=== PATIENT | female | born 1995 | race Caucasian/White ===

== ENCOUNTER 2021-01-01 14:19 | Emergency (ER) | payer OTHER, SELFPAY ==
[2021-01-01 14:36] VITALS: BP 120/67; PULSE 55; RESP 16; TEMP 36.3; O2SAT 98
--- NOTE | 2021-01-01 15:02 | ED.URI ---
HPI - URI/Sore Throat General Chief Complaint: Upper Respiratory Infection Stated Complaint: Allergies Time Seen by Provider: 01/01/21 14:42 Source: patient and RN notes reviewed Mode of arrival: ambulatory Limitations: no limitations History of Present Illness HPI Narrative: Patient presents today with a 2-day history of rhinorrhea, sore throat, postnasal drip, right eye drainage and redness, cough due to postnasal drip. Denies shortness of breath, difficulty swallowing, fever. No history of asthma. She has been taking Mucinex severe with mild relief. She had a negative rapid Covid test 2 days ago at [facility]. She had her first Covid 19 vaccination today. Reports that she needs to be seen by medical provider before she can return to work because she is still experiencing sick symptoms. MD elicited complaint: cough, sore throat and rhinorrhea Related Data Home Medications Medication Instructions Recorded Confirmed No Home Medications 01/01/21 01/01/21 Allergies Allergy/AdvReac Type Severity Reaction Status Date / Time No Known Allergies Allergy Unverified 01/01/21 14:39 Review of Systems Review of Systems: Narrative: CONSTITUTIONAL: Denies body aches, fever, chills, or sweats. EYES: Denies visual changes. + Eye redness and drainage ENT: Denies otalgia. + Rhinorrhea, postnasal drip, sore throat CARDIOVASCULAR: Denies chest pain, palpitations, or edema. RESPIRATORY: Denies dyspnea. + Cough GASTROINTESTINAL: Denies abdominal pain, nausea, vomiting, or diarrhea. GENITOURINARY: Denies dysuria or hematuria. SKIN: Denies rash, itching, or wounds. MUSCULOSKELETAL: Denies back pain, joint pain, or myalgia. NEUROLOGIC: Denies headache, numbness, tingling, or weakness. PSYCH: Denies depression or anxiety. [facility] Past Medical History Medical History (Updated 01/01/21 @ 15:07 by Nena Adames, [facility], ) Fracture, ilium closed Comments At time of signature, I have reviewed and agree with nursing past medical, surgical, social and family history unless otherwise noted. Please see nursing chart for further information. There is no relevant family history pertinent to the presenting complaint Exam Narrative: Exam Narrative: GENERAL: Well-appearing, well-nourished, and in no acute distress. HEAD: Normocephalic, atraumatic. EYES: EOMI. PERRL. Right eye with mildly injected conjunctiva and chemosis. Lids and lashes normal bilaterally. ENT: Mucous membranes pink and moist. Nares congested with rhinorrhea. Bilateral nasal turbinates are erythematous and edematous. TMs normal bilaterally. Throat normal. Uvula midline. NECK: Normal AROM. Supple. No lymphadenopathy. CHEST: No respiratory distress. Clear to auscultation. HEART: Regular rate and rhythm. No murmur appreciated. Normal peripheral pulses. EXTREMITIES: Normal range of motion. No edema. SKIN: Warm, dry, no rash. Capillary refill normal. Normal skin turgor. NEURO: No focal deficits. Alert and oriented x3. Gait steady. PSYCH: Normal affect. No signs of depression or anxiety. Course Vital Signs Vital signs: Vital Signs Temperature 97.4 F L 01/01/21 14:36 Pulse Rate 55 L 01/01/21 14:36 Respiratory Rate 16 01/01/21 14:36 Blood Pressure 120/67 01/01/21 14:36 Pulse Oximetry 98 01/01/21 14:36 Temperature 97.4 F L 01/01/21 14:36 Pulse Rate 55 L 01/01/21 14:36 Respiratory Rate 16 01/01/21 14:36 Blood Pressure 120/67 01/01/21 14:36 Pulse Oximetry 98 01/01/21 14:36 Reviewed MDM - URI/Sore Throat Differential Diagnosis Differential diagnosis: Likely upper respiratory infection, sinusitis, viral infection, bronchitis, pharyngitis and other (Rhinitis, seasonal allergies) Critical Care Time Critical Care Time Critical Care Time: No Discharge Plan Discharge Clinical Impression: Allergy to environmental factors Patient Disposition: Home, Self-Care Condition: Stable Instructions: Allergies (ED) Additional I
== END 2021-01-01 15:04 | disposition home or self-care (01) ==
PROVIDERS: Emergency Provider Nurse Practitioner
DX: J30.2 Other seasonal allergic rhinitis (principal)
CPT/HCPCS: 99202; G0463

== ENCOUNTER 2025-03-11 15:33 | Emergency (ER) | payer BC, SELFPAY ==
--- NOTE | ~2025-03-11 | US_ITS ---
EXAMINATION: US abdomen limited DATE: 03/11/2025 16:49 INDICATION: Right upper quadrant abdominal pain TECHNIQUE: Multiple grayscale and Doppler ultrasound images of the abdomen were obtained. COMPARISON: None FINDINGS: The visualized proximal to mid abdominal aorta and inferior vena cava are normal. The visualized body of the pancreas is normal. Portions of the head and tail are obscured by shadowing bowel gas.. Liver has normal echogenicity and contour, with a smooth surface. No liver lesion identified. No intrahepa tic biliary duct dilation suspected. Portal venous flow was seen in the hepatopetal, normal direction and has normal Doppler waveform. The gallbladder is normal in appearance. There is no cholelithiasi s. The common bile duct measures 3-4 mm, which is normal. Sonographic Poe sign was reported as pos itive by the shop steward. IMPRESSION: 1. Positive sonographic Poe's sign but otherwise normal right upper quadrant ultrasound with alessandra l appearing gallbladder and no cholelithiasis. Reviewed, dictated and finalized at location A. IMPRESSION: 1. Positive sonographic Poe's sign but otherwise normal right upper quadrant ultrasound with normal appearing gallbladder and no cholelithiasis.
--- OUTSIDE RECORDS SUMMARY | 2025-03-11 15:35 | XMS_ITS | Clinical Summary ---
Author Organization [facility] Address [address] [place] [address] Care Team Providers Care Logistics Planning Manager Name Role Phone Bela Vázquez MD Primary Care Provider [phone] Source Comments [facility],non-owned Affiliates and Associated Physician Practices is amultiple site organization consisting of ambulatory clinics and hospital sitesin [place], [place], [place] and [place]. This disclosure is being madepursuant to the Care Everywhere program and may not contain all information available regarding this patient. Last updated 18.Sumpto Allergies No known active allergies Medications * Be aware that medications may not be up to date on this document. Alwaysverify current medications with the patient. 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; describes vesicular and pustular rash, now resolved with exception of 2 excoriated papules in webspace of 1st and 2nd right finger; consider folliculitis vs scabies vs tendency toward psoriasis; h/o significant cradle cap and current mild dandruff Skin Cx: neg Family History Medical History Relation Name Comments Hay Fever Father Sinusitis Father Cancer Maternal Aunt Cancer Cervical Maternal Aunt Skin problem Maternal Aunt nodular acne Cancer Maternal Grandmother Cancer Cervical Maternal Grandmother Clotting Disorder Maternal Grandmother Diabetes Maternal Grandmother Stroke Maternal Grandmother Cold Sores Mother Relation Name Status Comments Father Maternal Aunt Maternal Grandmother Mother Social History Tobacco Use Types Packs/Day Years Used Date Smoking Tobacco: Never Alcohol Use Standard Drinks/Week Comments Yes 0 (1 standard drink = 0.6 oz pure alcohol) drinks beer on weekends at parties Comments Unknown Sex and Gender Information Value Date Recorded Sex Assigned at Not on file 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 Gender Identity Not on file Sexual Orientation Not on file Last Filed Vital Signs Vital Sign Reading Time Taken Comments Blood Pressure 115/66 07/22/2012 3:42 PM CDT Pulse 80 07/22/2012 3:42 PM CDT Temperature 36.7 C (98 F) 07/22/2012 3:42 PM CDT Respiratory Rate 19 07/22/2012 3:42 PM CDT Oxygen Saturation 99% 05/28/2012 8:50 AM CDT Inhaled Oxygen Concentration - - Weight 69.9 kg (154 lb 1.6 oz) 07/22/2012 3:42 P M CDT Height 162.6 cm (5' 4) 06/11/2012 3:34 PM CDT Body Mass Index - - Plan of Treatment Health Maintenance Due Date Last Done Comments HIV SCREENING 2010 HEPATITIS C SCREENING 10/29/2013 DTAP/TDAP/TD VACCINES (1 - Tdap) 2014 HEPATITIS B VACCINE (1 of 3 - 19+ 3-dose series) 2014 COVID-19 VACCINE (1 - 2023-2 5 season) 2024 DEPRESSION SCREENING 09/29/2024 INFLUENZA VACCINE (Season Ended) 2025 ZOSTER VACCINE (1 of 2) 2045 HIB VACCINE Aged Out No longer eligi ble based on patient's age to complete this topic HPV VACCINE Aged Out No longer eligi ble based on patient's age to complete this topic MENINGOCOCCAL (Group B) VACC INE SHARED DECISION-MAKING Aged Out No longer eligibl e based on patient's age to complete this topic MENINGOCOCCAL GROUPS A/C/Y/W VACCINE Aged Out No longer eligible b ased on patient's age to complete this topic PNEUMOCOCCAL VACCINE Aged Out No long er eligible based on patient's age to complete this topic Additional Health Concerns Infection Onset Date Last 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 07/27/2012 Insurance [place]ID [place] Member Subscriber Plan / Payer (Ef fective for All Dates) Name:Mey Steiner Relation to Subscriber:Self Name:Susan Steinerdiana Mancia Payer ID:Not on file Group ID:Not on file Type:Medicaid [place] Address: [place] [id number] [place] Member Subscriber Plan / Payer (Ef fective for All Dates) Name:Mey Steiner Relation to Subscriber:Self Name:Mey Steiner Payer ID:Not on file Group ID:Not on file Type:Medicaid [place] Address: [place] [id number] [place] Member Subscriber Plan / Payer (Ef fective for All Dates) Name:Mey Steiner Relation to Subscriber:Self Name:Mey Steiner Payer ID:Not on file Group ID:Not on file Type:Medicaid [place] Address: [place] [id number] Care Teams Logistics Planning Manager Relationship Specialty Start Date End Date Bela Vázquez MD PCP - General Pediatrics 03/23/12
--- OUTSIDE RECORDS SUMMARY | 2025-03-11 15:35 | XMS_ITS | Clinical Summary ---
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 Gender Identity Not on file Sexual Orientation Not on file Plan of Treatment Health Maintenance Due Date Last Done Comments Hepatitis C Virus (HCV) Screening 1995 TdaP Immunization 1995 Hepatitis B Immunization (1 of 3 - 19+ 3-dose series) 2014 Pap Smear 2016 Influenza Immunization (#1) 2024 SARS-COV-2 Immunization (2023- season) 2024 01/22/2021, 01/01/2021 Respiratory Syncytial Virus (RSV) Immunization (Adult) (1 - 1-dose 75+ series) 2070 Meningococcal Immunization (ACWY) Aged Out 02/02/2009 No longer eligible based on patient's age to complete this topic Human Papillomavirus (HPV) Immunization Discontinued 02/26/2013, 04/04/2009, 02/02/2009 Pneumococcal Immunization Combined Aged Out No longer eligible based on patient's age to complete this topic Rotavirus Immunization Aged Out No lo nger eligible based on patient's age to complete this topic
--- OUTSIDE RECORDS SUMMARY | 2025-03-11 15:35 | XMS_ITS | Continuity of Care Document ---
Author Organization [facility] Address [address] [place] [address] Phone Care Team Providers Care Powder Line Repairer Name Role Phone Erick Jarvis MD Unavailable Unavailable Advance Directives Directive Yes / No Effective Date File Name No Information Encounters Encounter Description Practice Location Reason(s) For Visit Diagnoses Date Provider Providers Copied on Encounter [facility], [address], [place], [place], [id number], [place] tel:[phone] [place] No Information Matheus Suarez. [address] [facility] [address], [place], [place], [id number], [place]. tel:[phone] Family History Family Member Type Diagnosis Age At Onset No Information Payers Payer name Insurance type Covered republican ID Authoriza tion(s) No Information Social History Type Description Quantity Date Captured Comments Sex Female Smoking Status No Information Chief Complaint And Reason For Visit No Information Reason For Referral Reason For Referral No Information History Of Present Illness Encounter Date Complaint History Of Prese nt Illness No Information Functional Status Date Functional Assessmen t No Information Instructions Date Instruction Additional Infor mation No Information Assessments Type Assessment Date No Information Patient Care Teams Name Effective Dates (start - stop) Status Members No Information
--- OUTSIDE RECORDS SUMMARY | 2025-03-11 15:35 | XMS_ITS | Clinical Summary ---
Author Organization [facility] Address [address] [place] [address] Care Team Providers Care Sound Person Name Role Phone Jame Guadalupe MD Primary Care Prov ider Juana Disla MD Unavailable Allergies No known active allergies Medications comb no.42-folic acid 1.4 mg tablet,chew,IR & DR,biphase Take by mouth daily Active docusate sodium (COLACE) 100 mg capsuleIndications :constipation Take 1 capsule (100 mg total) by mouth 2 (two) times a day 60 capsule 1 4 Active acetaminophen (TYLENOL) 500 mg tablet Take 2 tablets (1,000 mg total) by mouth every 6 (six) hours as needed for pain 90 tablet 4 Active norethindrone (MICRONOR) 0.35 mg tabletIndications: Contraception Take 1 tablet (0.35 mg total) by mouth daily Take one pill daily. Use backup as directed. 84 tablet 4 4 Active Active Problems Problem Noted Date Diagnosed Date 39 weeks gestation of 01/25/2024 Uterine contractions 01/17/2024 Decreased movements in third trimester Bacterial vaginosis in 01/17/2024 Vaginal bleeding in , third trimester 0 01/17/2024 Resolved Problems Problem Noted Date Diagnosed Date Resolved Date 38 weeks gestation of 01/17/2024 01/25/2024 Poor growth affecting management of mother in third trimester 12/09/2023 03/25/2024 Encounter for supervision of normal in first trimester 07/10/2023 03/25/2024 Overview (01/19/2024): NOTES: 1st Trimester: [x] Dating Criteria: LMP=first tri US [x] Labs: Lab Results Component Value Date [id number] A 07/07/2023 [id number] Positive 07/07/2023 [x] NIPT: [x] Carrier screening: [] ASA at 12 weeks: not needed 2nd -3rd Trimester: [x] Anatomy ultrasound: [x] Placenta Location: previa or no previa-anterior, no [] echo (if monochorionic, IVF, hx CHD) [x] 1h GTT: Lab Results Component Value Date [id number] 102 11/06/2023 [x] CBC: [x] Antibody screen: [] Flu Shot : [x] Tdap (28-32wks): 28 [] Rhogam (28-32wks if Rh neg): [x] 32 wk ultrasound [] RSV vaccine (32-36wks) [x] GBS (36w or planned delivery sooner): Lab Results Component Value Date STREPBDNA Negative 01/05/2024 Counseling: [x] Route of Delivery: [x] Timing of Delivery:39 weeks [] Post risks: [x] Improvement Manager [x] Circumcision-yes [] Method of contraception (if desires, tubal benefits checked) Immunizations Immunization Administration Dates Next Due Tdap 11/06/2023,04/23/2019 Medical History Medical History Date Comments Anxiety and depression Migraines Family History Medical History Relation Name Comments Autism Brother Breast cancer Maternal Grandmother Diabetes Maternal Grandmother Ovarian cancer Maternal Grandmother Pulmonary embolism Maternal Grandmother Diabetes Paternal Grandmother Relation Name Status Comments Brother Maternal Grandmother Paternal Grandmother Social History Tobacco Use Types Packs/Day Years Used Date Smoking Tobacco: Never Smokeless Tobacco: Never Tobacco Cessation:Counseling Given: Not Answered [place] Depression Scale Answer Date Recorded [place] Depression Scale Total 7 01/28/2024 The thought of harming myself has occurred to me . Never 01/28/2024 Personal Safety Answer Date Recorded Have you ever been in or are you currently in a harmful physical or emotional relationship or is someone making you feel afraid or unsafe? 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 Gender Identity Not on file Sexual Orientation Not on file Obstetrics History Para Term AB IAB SAB Ectopic Multiple Livin g Live Births 1 1 1 0 1 1 Date Outcome GA Total Labor Labor/2nd/3rd Weight Sex Type Anes PTL Susan A1 A5 Name Clin 2023 Term 39w 1d 2.816 kg (6 lb 3.3 oz) M C-Sec tion Epidur al N Livin g 8 9 Adele Coats MD Complications:Other (Comment ) Delivery Location:[facility] ([facility] PROC[facility]) Last Filed Vital Signs Vital Sign Reading Time Taken Comments Blood Pressure 114/78 03/25/2024 2:09 PM CDT Pulse 69 01/29/2024 8:31 AM CDT Temperature 36.5 C (97.7 F) 01/29/2024 8:31 AM CDT Respiratory Rate 18 01/29/2024 8:31 AM CDT Oxygen Saturation 99% 01/29/2024 8:31 AM CDT Inhaled Oxygen Concentration - - Weight 78 kg (172 lb) 03/25/2024 2:09 PM CDT Height 162.6 cm (5' 4) 01/25/2024 8:35 PM CDT Body Mass Index 29.52 01/25/2024 8:35 PM CDT Plan of Treatment Health Maintenance Due Date Last Done Comments Varicella Vaccines (1 of 2 - 13+ 2-dose series) 2008 Hepatitis B Screening 2013 Covid-19 Vaccine ( - 2023-2 5 season) 2024 01/22/2021, 01/01/2021 Cervical Cancer Screening 07/07/2024 07/07/2023 Regular Well Visit/Exam 18-64 07/07/2024 07/07/2023 Depression Screening 01/27/2025 01/28/2024 Influenza Vaccine (Season Ended) 2025 DTaP/Tdap/Td Vaccine (3 - Td or Tdap) 11/06/2033 11/06/2023, 04/23/2019 HPV Vaccines Completed 02/26/2013, 04/04/2009, 02/02/2009 Hepatitis C Screening Completed 07/07/2023 Pneumococcal vaccine <65 Aged Out No longer eligible based on patient's age to complete this topic Procedures Procedure Name Priority Date/Time Associated Diagnosis Comments HEPATITIS C AB W/REFL TO HCV RNA, QN, PCR (REFL) Routine 07/07/2023 5:35 PM CDT Supervision of normal first , antepartum IGP,CTNG,RFX APT HPV ALL PTH Routine 07/07/2023 5:17 PM CDT from Last 3 Months or Most Recently Relevant to Health Maintenance Results * HEPATITIS C AB W/REFL TO HCV RNA, QN, PCR (REFL) (07/07/2023 5:35 PM CDT) Hep C Ab Non Reactive Non Reactive [facility] - 01 Blood 07/07/2023 5:35 PM CDT 07/07/2023 Narrative [facility] - 07/08/2023 10:36 AM CDT Performed at: [address] [place] [id number] Irrigator Head: Archie Mock PhD, Phone: [phone] us Juana Disla MD LAB BLOOD ORDERABLES Fi nal Result [facility] - 01 * IGP,CtNg,rfx Apt HPV all pth (07/07/2023 5:17 PM CDT) Clinical indication Comment [facility] - 01 Comment:NEGATIVE FOR INTRAEP ITHELIAL LESION OR MALIGNANCY. Specimen adequacy: Comment [facility] - 01 Comment: Satisfactory for evaluation. Endocervical and/or squamous metaplastic cells (endocervical component) are present. Clinician provided ICD10 Comment [facility] - 01 Comment:Z12.4 Performed by Comment [facility] - 01 Comment:Saurabh Drew, Cytot echnologist (ASCP) . . [facility] - 01 Note: Comment [facility] - 01 Comment: The Pap smear is a screening test designed to aid in the detection of premalignant and malignant conditions of the uterine cervix. It is not a diagnostic procedure and should not be used as the sole means of detecting cervical cancer. Both false-positive and false-negative reports do occur. Test methodology Comment [facility] - 01 Comment: This liquid based ThinPrep(R) pap test was screened with the use of an image guided system. . Comment [facility] - 01 Comment: The HPV DNA reflex criteria were not met with this specimen result therefore, no HPV testing was performed. Chlamydia, Nuc. Acid Amp Negative Negative [facility] 02 Gonococcus, Nuc. Acid Amp Negative Negative [facility] 02 07/07/2023 5:17 PM CDT 07/08/2023 Narrative [facility] - 07/11/2023 3:07 AM CDT Performed at: - [facility] [id number] Irrigator Head: Hetal Avilez MD, Phone: [phone] Performed at: - [facility] [id number] Irrigator Head: Hetal Avilez MD, Phone: [phone] Specimen Comment: Source.............Cervix;Endocervix Specimen Comment: No. of containers..01 ThinPrep Vial Juana Disla MD LAB PATHOLOGY ORDERABLE S Final [facility] - 01 [facility] 02 from Last 3 Months or Most Recently Relevant to Health Maintenance [facility] CHO[facility] PLUS IDPA [facility] CHO[facility] PLUS IDPA Advance Directives For more information, please contact: [phone] * Full Code (Latest Code Status on File) Date Activated Date Inactivated Comments 01/26/2024 8:57 AM 01/29/2024 5:12 PM * Full Code Date Activated Date Inactivated Comments 01/25/2024 9:05 PM 01/26/2024 8:57 AM Full CPR in case of cardiopulmonary arrest Care Teams Sound Person Relationship Specialty Start Date End Date Jame Guadalupe MD [address] [place] [address] PCP - General Family Medicine 06/03/23 Juana Disla MD [address] [place] [address] Consulting Physician Obstetrics and Gynecology 12/17/23
--- OUTSIDE RECORDS SUMMARY | 2025-03-11 15:35 | XMS_ITS | Referral Summary ---
Author Organization [facility] Address [address] [place] [address] Care Team Providers Care Financial Aid Officer Name Role Phone Jame Guadalupe MD Primary Care Prov ider Juana Disla MD Unavailable [phone] Allergies No known active allergies Medications comb [...] [x] Labs: Lab Results Component Value Date [id number] A 07/07/2023 [id number] Positive 07/07/2023 [x] NIPT: [x] Carrier screening: [] ASA at 12 weeks: not needed 2nd -3rd Trimester: [x] Anatomy ultrasound: [x] Placenta Location: previa or no previa-anterior, no [] echo (if monochorionic, IVF, hx CHD) [x] 1h GTT: Lab Results Component Value Date [id number] 102 11/06/2023 [x] CBC: [x] Antibody screen: [] Flu Shot : [x] Tdap (28-32wks): 2/8 [] Rhogam (28-32wks if Rh neg): [x] 32 wk ultrasound [] RSV vaccine (32-36wks) [x] GBS (36w or planned delivery sooner): Lab Results Component Value Date STREPBDNA Negative 01/05/2024 Counseling: [x] Route of Delivery: [x] Timing of Delivery:39 weeks [] Post risks: [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 Economic History [x] Circumcision-yes [] Method of contraception (if desires, tubal benefits checked) Immunizations Immunization Administration Dates Next Due Tdap 11/06/2023,04/23/2019 Social History Tobacco Use Types Packs/Day Years Used Date Smoking Tobacco: Never Smokeless Tobacco: Never Tobacco Cessation:Counseling Given: Not Answered [place] Depression Scale Answer Date Recorded [place] Depression Scale Total 7 01/28/2024 The thought [...] on file 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 Test methodology Comment [facility] - Comment: This liquid based ThinPrep(R) pap test [...] 07/11/2023 3:07 AM CDT Performed at: - [address] [id number] Model Technician: Hetal Avilez MD, Phone: [phone] Performed at: - [address] [id number] Model Technician: Hetal Avilez MD, Phone: [phone] Specimen Comment: Source.............Cervix;Endocervix Specimen Comment: No. of containers..01 ThinPrep Vial us Juana Disla MD LAB PATHOLOGY ORDERABLE S Final [facility] 02 from Last 3 Months or Most Recently Relevant to Health Maintenance Insurance [facility] CHO[facility] PLUS [facility] CHO[facility] PLUS [facility] CHOICE PLUS IDPA [facility] CHOICE PLUS IDPA Advance Directives For more information, please contact: [phone] * Full Code (Latest Code Status on File) Date Activated Date Inactivated Comments 01/26/2024 8:57 AM 01/29/2024 5:12 PM * Full Code Date Activated Date Inactivated Comments 01/25/2024 9:05 PM 01/26/2024 8:57 AM Full CPR in case of cardiopulmonary arrest Care Teams Financial Aid Officer Relationship Specialty Start Date End Date Jame Guadalupe MD [address] [place] [address] PCP - General Family Medicine 06/03/23 Juana Disla MD [address] [facility] [address] [place] [address] Consulting Physician Obstetrics and Gynecology 12/17/23
[2025-03-11 15:49] VITALS: BP 132/66; PULSE 112; RESP 16; TEMP 37.1; O2SAT 99
--- NOTE | 2025-03-11 15:58 | ED_ITS ---
HPI - General Adult General Chief complaint: Abdominal Pain Stated complaint: Right Lower Quad Pain, Vomiting Time Seen by Provider: 03/11/25 15:42 History of Present Illness HPI narrative: 29-year-old female present to the emergency department for evaluation for right upper quadrant abdominal pain. Patient reports symptoms have been intermittent since approximately 2:00 a.m.. Patient has nausea vomiting without diarrhea. Patient denies any prior history of gallbladder disease and has no prior history of cholecystectomy. Patient does have a prior history of section. Patient denies any prior history of ovarian cyst. Related Data Allergies Allergy/AdvReac Type Severity Reaction Status Date / Time methylphenidate (From AdvReac Mild Headache Verified 04/08/24 14:18 Concerta) Review of Systems 2 Review of Systems: All systems reviewed & are unremarkable except as noted in HPI and below PMFSH Past Medical History Medical History (Updated 03/11/25 @ 17:45 by Abhinav Simmons MD) Fracture, ilium closed Family History Family History (Updated 06/27/22 @ 08:34 by Shu Benton, PADesC) Father Hypertension Mother GERD (gastroesophageal reflux disease) Other Cervical cancer Grandparent Skin cancer Sibling Autism Other Breast cancer Other Diabetes mellitus Social History Social History Smoking status: Never smoker Exam 2 Narrative: APPEARANCE: Uncomfortable appearing HEAD: normocephalic, atraumatic. EYES: PERRLA/EOMI, conjunctivae clear. NOSE: Normal no drainage EARS:TMS clear with good light reflex. THROAT: Pharynx clear, no exudate. NECK: Supple. No adenopathy, no masses. RESPIRATORY: Airway patent, respirations nonlabored. Clear to auscultation bilaterally, no rales, rhonchi, wheezing. CARDIOVASCULAR: Regular rate and rhythm without murmurs rubs or gallops. ABDOMINAL: Right upper quadrant tenderness to palpation MUSCULOSKELETAL: Moves all extremities. Strength/ROM intact, No edema, No calf tenderness. NEURO: Alert. Cranial nerves II through XII intact. Good gait. Good coordination SKIN: Warm, dry. Normal Color Course Vital Signs Vital signs: Vital Signs Temperature 98.7 F 03/11/25 15:49 Pulse Rate 112 H 03/11/25 15:49 Respiratory Rate 16 03/11/25 15:49 Blood Pressure 132/66 03/11/25 15:49 Pulse Oximetry 99 03/11/25 15:49 Temperature 97.9 F 03/11/25 18:35 Pulse Rate 92 03/11/25 18:35 Respiratory Rate 16 03/11/25 18:35 Blood Pressure 112/68 03/11/25 18:35 Pulse Oximetry 100 03/11/25 18:35 Medical Decision Making MDM Narrative Medical decision making narrative: 29-year-old female presents emergency department for evaluation for right flank and right upper quadrant pain. Patient is currently afebrile but does have a leukocytosis of 12.8 hemoglobin 14.1. Patient is an INR 1.1. Patient has no acute abnormalities in her lactic acid T bili AST ALT or lipase. Patient does have leukocyte esterase positive with high red now white blood cells with +2 bacteria. Patient did have a sonographic Poe positive ultrasound but otherwise negative ultrasound. Patient has no acute abnormalities on her CMP. Patient does have urinary tract infection. Suspect that patient may have some pain associated with the right kidney. Patient was advised to follow a fat-free diet and is being started on antibiotics for urinary tract infection. Patient was encouraged of close follow-up with her primary care physician for a HIDA scan to evaluate for gallbladder dysfunction rather than gallbladder infection. Patient will also be provided Pyridium for any urinary symptoms. Patient was comfortable plan for discharge and close follow-up. Differential Diagnosis Differential Diagnosis: Cholecystitis, biliary colic, UTI, appendicitis, colitis, diverticulitis Vital Signs Vital Signs: Vital Signs Temperature 98.7 F 03/11/25 15:49 Pulse Rate 112 H 03/11/25 15:49 Respiratory Rate 16 03/11/25 15:49 Blood Pressure 132/66 03/11/25 15:49 Pulse Oximetry 99 03/11/25 15:49 Temperature 97.9 F 03/11/25 18:35 Pulse Rate 92 03/11/25 18:35 Respiratory Rate 16 03/11/25 18:35 Blood Pressure 112/68 03/11/25 18:35 Pulse Oximetry 100 03/11/25 18:35 Lab Data Lab results reviewed: Yes I reviewed the patient's lab results. 03/11/25 16:13 03/11/25 16:13 Labs: Lab Results 03/11/25 03/11/25 03/11/25 Range/Units 16:13 16:44 16:49 WBC 12.8 H (4.5-10.0) K/mm3 RBC 4.60 (4.2-5.4) M/mm3 Hgb 14.1 (12.0-15.0) g/dL Hct 41.3 (37.0-47.0) % MCV 89.8 (80-100) fl MCH 30.7 (26-34) pg MCHC 34.1 (32-36) g/dl RDW 12.1 (11.5-14.5) % Plt Count 235 (150-375) k/mm3 MPV 11.3 H (7.4-10.4) fl Immature Gran % (Auto) 0.3 (0-0.5) % Neut % (Auto) 92.3 H (45.5-73.1) % Lymph % (Auto) 3.6 L (18.3-44.2) % [place] % (Auto) 3.6 (2.6-8.5) % Eos % (Auto) 0.0 (0-4.4) % Baso % (Auto) 0.2 (0.2-1.2) % Lymph # (Auto) 0.46 L (0.9-3.2) K/mm3 [place] # (Auto) 0.5 (0.1-0.6) K/mm3 Eos # (Auto) 0.0 (0-0.3) K/mm3 Baso # (Auto) 0.0 (0.0-0.1) K/mm3 Abs Immat Gran (auto) 0.04 H (0.00-0.031) K/mm3 Absolute Neuts (auto) 11.9 H (1.3-6.7) K/mm3 Absolute Nucleated RBC 0.000 (0.0-0.012) K/mm3 Nucleated RBC % 0.0 (0.0-0.2) % PT 14.3 (11.1-14.7) Seconds INR 1.1 Sodium 137 (137-145) mmol/L Potassium 3.5 (3.4-5.0) mmol/L Chloride 105 (98-107) mmol/L Carbon Dioxide 21 L (22-30) mmol/L Anion Gap 11 (4-12) mmol/L BUN 9 (7-17) mg/dL Creatinine 0.63 L (0.7-1.0) mg/dL Estim Creat Clear Calc 115 ml/min Estimated GFR > 60 (59 - ) Glucose 116 H (65-110) mg/dL Lactic Acid 0.7 (0.7-2.0) mmol/L Calcium 9.0 (8.4-10.2) mg/dL Total Bilirubin 0.8 (0.2-1.3) mg/dL AST 24 (14-36) U/L ALT 16 (6-35) U/L Alkaline Phosphatase 55 (38-126) U/L Total Protein 7.9 (6.3-8.2) g/dL Albumin 4.6 (3.5-5.1) g/dL Lipase 56 (23-300) U/L Urine Color Yellow (Yellow) Urine Appearance Cloudy H (Clear) Urine pH 6.5 (5.0-9.0) Ur Specific [place] 1.026 (1.001-1.035) Urine Protein Trace (Negative) mg/dL Urine Glucose (UA) Negative (Negative) mg/dL Urine Ketones Trace H (Negative) mg/dL Ur Blood (Man) Negative (Negative) Urine Nitrate Negative (Negative) Urine Bilirubin Negative (Negative) Urine Urobilinogen 1.0 (<2.0) mg/dL Add Ur Microanalysis Reviewed Leukocyte Esterase Rfl 2+ H (Negative) BG/UL Urine RBC 11-20 H (0-2) /hpf Urine WBC 21-50 H (0-3) /hpf Ur Squamous Epith Cells Few (Few) /hpf Urine Bacteria 2+ H /hpf Urine Casts 0-2 POC Urine HCG, Qual (Negative) 03/11/25 Range/Units 16:50 WBC (4.5-10.0) K/mm3 RBC (4.2-5.4) M/mm3 Hgb (12.0-15.0) g/dL Hct (37.0-47.0) % MCV (80-100) fl MCH (26-34) pg MCHC (32-36) g/dl RDW (11.5-14.5) % Plt Count (150-375) k/mm3 MPV (7.4-10.4) fl Immature Gran % (Auto) (0-0.5) % Neut % (Auto) (45.5-73.1) % Lymph % (Auto) (18.3-44.2) % [place] % (Auto) (2.6-8.5) % Eos % (Auto) (0-4.4) % Baso % (Auto) (0.2-1.2) % Lymph # (Auto) (0.9-3.2) K/mm3 [place] # (Auto) (0.1-0.6) K/mm3 Eos # (Auto) (0-0.3) K/mm3 Baso # (Auto) (0.0-0.1) K/mm3 Abs Immat Gran (auto) (0.00-0.031) K/mm3 Absolute Neuts (auto) (1.3-6.7) K/mm3 Absolute Nucleated RBC (0.0-0.012) K/mm3 Nucleated RBC % (0.0-0.2) % PT (11.1-14.7) Seconds INR Sodium (137-145) mmol/L Potassium (3.4-5.0) mmol/L Chloride (98-107) mmol/L Carbon Dioxide (22-30) mmol/L Anion Gap (4-12) mmol/L BUN (7-17) mg/dL Creatinine (0.7-1.0) mg/dL Estim Creat Clear Calc ml/min Estimated GFR (59 - ) Glucose (65-110) mg/dL Lactic Acid (0.7-2.0) mmol/L Calcium (8.4-10.2) mg/dL Total Bilirubin (0.2-1.3) mg/dL AST (14-36) U/L ALT (6-35) U/L Alkaline Phosphatase (38-126) U/L Total Protein (6.3-8.2) g/dL Albumin (3.5-5.1) g/dL Lipase (23-300) U/L Urine Color (Yellow) Urine Appearance (Clear) Urine pH (5.0-9.0) Ur Specific [place] (1.001-1.035) Urine Protein (Negative) mg/dL Urine Glucose (UA) (Negative) mg/dL Urine Ketones (Negative) mg/dL Ur Blood (Man) (Negative) Urine Nitrate (Negative) Urine Bilirubin (Negative) Urine Urobilinogen (<2.0) mg/dL Add Ur Microanalysis Leukocyte Esterase Rfl (Negative) BG/UL Urine RBC (0-2) /hpf Urine WBC (0-3) /hpf Ur Squamous Epith Cells (Few) /hpf Urine Bacteria /hpf Urine Casts POC Urine HCG, Qual Negative (Negative) Imaging Data Radiologist's impression: Impressions Abdomen Ultrasound 03/11/25 17:01 IMPRESSION: 1. Positive sonographic Poe's sign but otherwise normal right upper quadrant ultrasound with normal appearing gallbladder and no cholelithiasis. Discharge Plan Discharge Clinical Impression: Urinary tract infection Patient Disposition: Home Condition: Stable Instructions: Antibiotic Form, Urinary Tract Infection in Women (DC), Low Fat Diet (ED), Abdominal Pain (ED) Additional Instructions: Antibiotic as directed until completed. Pyridium as needed for urinary symptoms. Follow a low-fat diet. Have close follow-up with your primary care physician to schedule a HIDA scan as outpatient. If you have any worsening symptoms then please call or return to the emergency department. Patient Language: Peruvian Prescriptions: New phenazopyridine [Pyridium] 100 mg tablet 100 mg PO TID PRN (Reason: pain) Qty: 6 0RF cephalexin 500 mg capsule 500 mg PO Q8H 7 Days Qty: 21 0RF No Action escitalopram oxalate 10 mg tablet 10 mg PO DAILY Qty: 30 8RF dextroamphetamine-amphetamine [Adderall XR] 20 mg capsule,extended release 24hr 20 mg PO DAILY Qty: 30 0RF Follow-up/Referrals: Jame Guadalupe MD [Primary Care Provider] -
--- NOTE | 2025-03-11 16:21 | PC.NURSE ---
pt to ultrasound at this time
[2025-03-11 16:22] LABS: Basophils Percent Auto 0.2 % (0.2-1.2); Hematocrit 41.3 % (37.0-47.0); Hemoglobin 14.1 g/dL (12.0-15.0); Immature Granulocyte Absolute 0.04 K/mm3 (0.00-0.031); Immature Granulocyte Percent A 0.3 % (0-0.5); Lymphocytes Absolute Auto 0.46 K/mm3 (0.9-3.2); Lymphocytes Percent Auto 3.6 % (18.3-44.2); Mean Corpuscular HGB Conc 34.1 g/dl (32-36); Mean Corpuscular Hemoglobin 30.7 pg (26-34); Mean Corpuscular Volume 89.8 fl (80-100); Mean Platelet Volume 11.3 fl (7.4-10.4); Monocytes Absolute Auto 0.5 K/mm3 (0.1-0.6); Monocytes Percent Auto 3.6 % (2.6-8.5); Neutrophils Absolute Auto 11.9 K/mm3 (1.3-6.7); Neutrophils Percent Auto 92.3 % (45.5-73.1); Platelet Count Result 235 k/mm3 (150-375); Red Cell Distribution Width 12.1 % (11.5-14.5); White Blood Count 12.8 K/mm3 (4.5-10.0)
[2025-03-11 16:28] LABS: Alanine Aminotransferase 16 U/L (6-35); Albumin Level 4.6 g/dL (3.5-5.1); Alkaline Phosphatase 55 U/L (38-126); Anion Gap 11 mmol/L (4-12); Aspartate Amino Transferase 24 U/L (14-36); Bilirubin,Total 0.8 mg/dL (0.2-1.3); Blood Urea Nitrogen 9 mg/dL (7-17); Carbon Dioxide 21 mmol/L (22-30); Chloride 105 mmol/L (98-107); Estimated CRCL calculation 115 ml/min; Estimated Glomerular Filt Rate > 60; Glucose 116 mg/dL (65-110); Lipase 56 U/L (23-300); Potassium 3.5 mmol/L (3.4-5.0); Sodium 137 mmol/L (137-145); Total Protein 7.9 g/dL (6.3-8.2)
[2025-03-11 16:54] VITALS: BP 118/74; PULSE 99; RESP 19; O2SAT 98
[2025-03-11 16:54] LABS: BEDSIDEPREGUCG Negative (Negative)
[2025-03-11] MEDS: ONDANSETRON INJ 4 MG/2 ML VIAL IV PUSH (16:55)
[2025-03-11] MEDS: HYDROmorphone HCL INJ (*CRX) 2 MG/ML VIAL 0.5 MG IV PUSH (16:56)
[2025-03-11] MEDS: LACTATED RINGERS 1,000 ML 999 ML IV CONT (16:58)
[2025-03-11 16:59] LABS: Lactic Acid Reflex 0.7 mmol/L (0.7-2.0)
[2025-03-11 17:00] LABS: INR 1.1; Prothrombin Time 14.3 Seconds (11.1-14.7)
[2025-03-11 17:11] LABS: Add Urine Microscopic? YES; Appearance Urine Cloudy (Clear); Bacteria Urine 2+ /hpf; Bilirubin Urine Negative (Negative); Blood Urine Negative (Negative); Color Urine Yellow (Yellow); Glucose Urine UA Negative (Negative); Ketones Urine Trace mg/dL (Negative); Leukocyte Esterase Ur 2+ LEU/UL (Negative); Need Manual Microscopic Reviewed; Nitrate Urine Negative (Negative); Non Pathogenic Casts 0-2; Protein Urine Trace mg/dL (Negative); Specific Grav Ur 1.026 (1.001-1.035); Squamous Epithelial Cell Urine Few /hpf (Few); WBC Urine 21-50 /hpf (0-3); pH Urine 6.5 (5.0-9.0)
--- NOTE | 2025-03-11 17:27 | PC.NURSE ---
spoke with EDP about blood cultures- states that they are not required.
--- OUTSIDE RECORDS SUMMARY | 2025-03-11 17:27 | XMS_ITS | Clinical Summary ---
Author Organization [facility] Address [address] [place] [address] Care Team Providers Care Bill Cutter Name Role Phone Jame Guadalupe MD Primary Care Prov ider Juana Disla MD Unavailable [phone] Allergies No known active allergies Medications comb [...] [x] Labs: Lab Results Component Value Date [id number] A 07/07/2023 [id number] Positive 07/07/2023 [x] NIPT: [x] Carrier screening: [] ASA at 12 weeks: not needed 2nd -3rd Trimester: [x] Anatomy ultrasound: [x] Placenta Location: previa or no previa-anterior, no [] echo (if monochorionic, IVF, hx CHD) [x] 1h GTT: Lab Results Component Value Date [id number] 102 11/06/2023 [x] CBC: [x] Antibody screen: [] Flu Shot : [x] Tdap (28-32wks): 28 [] Rhogam (28-32wks if Rh neg): [x] 32 wk ultrasound [] RSV vaccine (32-36wks) [x] GBS (36w or planned delivery sooner): Lab Results Component Value Date STREPBDNA Negative 01/05/2024 Counseling: [x] Route of Delivery: [x] Timing of Delivery:39 weeks [] Post risks: [x] Traditional Chinese Herbalist [x] Circumcision-yes [] Method of contraception (if [...] Tobacco: Never Tobacco Cessation:Counseling Given: Not Answered [place] Depression Scale Answer Date Recorded [place] Depression Scale Total 7 01/28/2024 The thought [...] on file 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 Gender Identity Not on file Sexual Orientation [...] MD Complications:Other (Comment ) Delivery Location:This [facility] ([facility] L AND D PROCEDURE) Last Filed Vital [...] - 07/08/2023 10:36 AM CDT Performed at: [address] [place] [id number] Pilling Machine Operator: Archie Mock PhD, Phone: [phone] us Juana Disla MD LAB BLOOD ORDERABLES [...] 07/11/2023 3:07 AM CDT Performed at: - [address] [id number] Pilling Machine Operator: Hetal Avilez MD, Phone: [phone] Performed at: - [facility] [id number] Pilling Machine Operator: Hetal Avilez MD, Phone: [phone] Specimen Comment: Source.............Cervix;Endocervix Specimen Comment: No. of containers..01 ThinPrep Vial Juana Disla MD LAB PATHOLOGY ORDERABLE S Final Result [facility] LAB [place] 02 from Last 3 Months or Most Recently Relevant to Health Maintenance Insurance [facility] CHOICE PLUS [facility] CHOICE PLUS [facility] CHOICE PLUS IDPA [facility] CHOICE PLUS IDPA Advance Directives For more information, please contact: [phone] * Full Code (Latest Code Status on File) Date Activated Date Inactivated Comments 01/26/2024 8:57 AM 01/29/2024 5:12 PM * Full Code Date Activated Date Inactivated Comments 01/25/2024 9:05 PM 01/26/2024 8:57 AM Full CPR in case of cardiopulmonary arrest Care Teams Bill Cutter Relationship Specialty Start Date End Date Jame Guadalupe MD [address] [place] [address] PCP - General Family Medicine 06/03/23 Juana Disla MD [address] [place] [address] Consulting Physician Obstetrics and Gynecology 12/17/23
--- OUTSIDE RECORDS SUMMARY | 2025-03-11 17:27 | XMS_ITS | Clinical Summary ---
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
--- OUTSIDE RECORDS SUMMARY | 2025-03-11 17:27 | XMS_ITS | Clinical Summary ---
Author Organization [facility] Address [address] [place] [address] Care Team Providers Care Coupling Machine Operator Name Role Phone Bela Vázquez MD Primary Care Provider [phone] Source Comments [facility],non-owned Affiliates and Associated Physician Practices is amultiple site organization consisting of ambulatory clinics and hospital sitesin [place], [place], [place] and [place]. This disclosure is being madepursuant to the Care Everywhere program and may not contain all information available regarding this patient. 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 Gender Identity Not on file Sexual Orientation [...] Group ID:Not on file Type:Medicaid [place] Address: [place] [id number] MEDICAID [place] Member Subscriber Plan / Payer (Ef fective for All Dates) Name:Mey Steiner Relation to Subscriber:Self Name:Mey Steiner Payer ID:Not on file Group ID:Not on file Type:Medicaid [place] Address: [place] [id number] [place] Member Subscriber Plan / Payer (Ef fective for All Dates) Name:Mey Steiner Relation to Subscriber:Self Name:Mey Steiner Payer ID:Not on file Group ID:Not on file Type:Medicaid [place] Address: [place] [id number] Care Teams Coupling Machine Operator Relationship Specialty Start Date End Date Bela Vázquez MD PCP - General Pediatrics 03/23/12
--- OUTSIDE RECORDS SUMMARY | 2025-03-11 17:27 | XMS_ITS | Continuity of Care Document ---
Author Organization [facility] Address [address] [place] [address] Phone Care Team Providers Care Technology Lab Teacher Name Role Phone Erick Jarvis MD Unavailable Unavailable Advance Directives Directive Yes / No Effective Date File Name No Information Encounters Encounter Description Practice Location Reason(s) For Visit Diagnoses Date Provider Providers Copied on Encounter [facility], [address], [place], [place], [id number], [place] tel:[phone] Amigo No Information Matheus Suarez. [address] [facility] [address], [place], [place], [id number], [place]. tel:[phone] Family History Family Member Type Diagnosis Age At Onset No Information Payers Payer name Insurance type Covered alliance party ID Authoriza tion(s) No Information Social History [...]
--- OUTSIDE RECORDS SUMMARY | 2025-03-11 17:27 | XMS_ITS | Referral Summary ---
Author Organization [facility] Address [address] [place] [address] Care Team Providers Care Street Light Repairer Name Role Phone Jame Guadalupe MD Primary Care Prov ider Juana Disla MD Unavailable [phone] Allergies No known active allergies Medications comb [...] [x] Labs: Lab Results Component Value Date [id number] A 07/07/2023 [id number] Positive 07/07/2023 [x] NIPT: [x] Carrier screening: [] ASA at 12 weeks: not needed 2nd -3rd Trimester: [x] Anatomy ultrasound: [x] Placenta Location: previa or no previa-anterior, no [] echo (if monochorionic, IVF, hx CHD) [x] 1h GTT: Lab Results Component Value Date [id number] 102 11/06/2023 [x] CBC: [x] Antibody screen: [] Flu Shot : [x] Tdap (28-32wks): 2/8 [] Rhogam (28-32wks if Rh neg): [x] 32 wk ultrasound [] RSV vaccine (32-36wks) [x] GBS (36w or planned delivery sooner): Lab Results Component Value Date STREPBDNA Negative 01/05/2024 Counseling: [x] Route of Delivery: [x] Timing of Delivery:39 weeks [] Post risks: [x] Pie Topper [x] Circumcision-yes [] Method of contraception (if desires, tubal benefits checked) Immunizations Immunization Administration Dates Next Due Tdap 11/06/2023,04/23/2019 Social History Tobacco Use Types Packs/Day Years Used Date Smoking Tobacco: Never Smokeless Tobacco: Never Tobacco Cessation:Counseling Given: Not Answered [place] Depression Scale Answer Date Recorded [place] Depression Scale Total 7 01/28/2024 The thought [...] on file 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 of containers..01 ThinPrep Vial us Juana Disla MD LAB PATHOLOGY ORDERABLE S Final [facility] [place] 02 from Last 3 Months or Most Recently Relevant to Health Maintenance Insurance [facility] CHOICE PLUS [facility] CHOICE PLUS [facility] CHOICE PLUS IDPA [facility] CHOICE PLUS IDPA Advance Directives For more information, please contact: [phone] * Full Code (Latest Code Status on File) Date Activated Date Inactivated Comments 01/26/2024 8:57 AM 01/29/2024 5:12 PM * Full Code Date Activated Date Inactivated Comments 01/25/2024 9:05 PM 01/26/2024 8:57 AM Full CPR in case of cardiopulmonary arrest Care Teams Street Light Repairer Relationship Specialty Start Date End Date Jame Guadalupe MD [address] [place] [address] PCP - General Family Medicine 06/03/23 Juana Disla MD [address] [facility] [address] [place] [address] Consulting Physician Obstetrics and Gynecology 12/17/23
[2025-03-11 18:35] VITALS: BP 112/68; PULSE 92; RESP 16; TEMP 36.6; O2SAT 100
== END 2025-03-11 18:36 | disposition home or self-care (01) ==
PROVIDERS: Emergency Provider Emergency Medicine; PCP Family Medicine Adolescent Medicine
DX: N39.0 Urinary tract infection, site not specified (principal)
CPT/HCPCS: 36415; 76705; 80053; 81001; 81025; 83605; 83690; 85025; 85610; 87086; 96361; 96365; 96375; 99284; J0696; J1171; J2405; J7120